=== PATIENT | female | born 1980 | race Caucasian/White ===

== ENCOUNTER 2017-05-26 15:56 | Outpatient (CLI) | payer OTHER ==
[2012-06-26 14:47] VITALS: BP 116/75
[2017-05-26 16:15] LABS: BASOPHILS % 0.8 (0.0-1.5); EOSINOPHILS % 6.8 % (0.0-6.8); MEAN CORPUSCULAR HEMOGLOBIN 29.5 pg (28.0-34.0); MEAN CORPUSCULAR VOLUME 89.3 fl (80.0-100.0); MONOCYTES % 4.9 % (0.0-11.0); NEUTROPHILS # 5.6 # k/uL (1.4-7.7)
[2017-05-26 17:12] LABS: eGFR (African) > 60; eGFR (Non-African) > 60
== END 2017-05-26 15:57 ==
LOC: LAB 15:56
PROVIDERS: ATTEND Physician Assistant
DX: Z00.00 Encounter for general adult medical examination without abnormal findings (principal)
CPT/HCPCS: 36415; 80053; 84443; 85025